=== PATIENT | male | born 1990 | race Two or more races ===

== ENCOUNTER 2018-01-05 14:51 | Emergency (ER) | payer OTHER, MEDICAID ==
[~2018-01-05] VITALS: Ht 188 cm; Wt 80.0 kg
[2018-01-05 15:14] VITALS: BP 146/78
== END 2018-01-05 17:51 | disposition home or self-care (01) ==
LOC: ER 14:51
DX: Z00.00 Encounter for general adult medical examination without abnormal findings (principal); F15.10 Other stimulant abuse, uncomplicated; F12.10 Cannabis abuse, uncomplicated; F17.210 Nicotine dependence, cigarettes, uncomplicated
CPT/HCPCS: 99281

== ENCOUNTER 2018-09-01 16:21 | Emergency (ER) | payer MEDICAID, OTHER ==
[~2018-09-01] VITALS: Ht 182.9 cm; Wt 89.0 kg
[2018-09-01] MEDS ORDERED: HYDROCODONE/ACETAMINOPHEN 5/325MG TABLET PO ONE (17:15)
[2018-09-01 21:04] VITALS: BP 120/68
== END 2018-09-01 21:04 | disposition home or self-care (01) ==
LOC: ER 16:21
DX: S93.402A Sprain of unspecified ligament of left ankle, initial encounter (principal); I10 Essential (primary) hypertension; K75.9 Inflammatory liver disease, unspecified; F12.10 Cannabis abuse, uncomplicated; F15.10 Other stimulant abuse, uncomplicated; Z98.890 Other specified postprocedural states; Z88.6 Allergy status to analgesic agent; W01.0XXA Fall on same level from slipping, tripping and stumbling without subsequent striking against object, initial encounter; Y93.89 Activity, other specified; Y92.89 Other specified places as the place of occurrence of the external cause; Y99.8 Other external cause status
CPT/HCPCS: 73590; 73610; 99283; Z7610